=== PATIENT | male | born 1965 | race Caucasian/White ===

== ENCOUNTER → 2022-11-13 | Outpatient (CLI) | payer MEDICARE ==
[~2022-11-13] MED LIST: CEPH500 PO; Cleocin HCl300 MG PO; HYDR1TAB94 PO; PHENY100ER PO; Percocet 5-3251 EACH PO; TRIA80TC TOP
[2022-11-15 19:10] LABS: HSV-1 DNA Negative (Negative); HSV-2 DNA Positive (Negative)
== END | disposition home or self-care (01) ==
LOC: LAB 16:41 → LAB SHORT 16:41
PROVIDERS: Physician Assistant Medical
DX: R21 Rash and other nonspecific skin eruption (principal)
CPT/HCPCS: 87529; 87798